=== PATIENT | male | born 1995 | race Caucasian/White ===

== ENCOUNTER 2020-09-15 12:29 | Emergency (ER) | payer BC, SELFPAY ==
[2020-09-15 12:43] VITALS: BP 129/77; PULSE 62; RESP 20; TEMP 36.9; O2SAT 100
--- NOTE | 2020-09-15 12:54 | ED.EAR ---
HPI - Ear Problem General Chief complaint: Ear Stated complaint: ear pain Time Seen by Provider: 09/15/20 12:44 Source: patient and RN notes reviewed Mode of arrival: ambulatory Limitations: no limitations History of Present Illness HPI Narrative: Patient presents today complaining of right ear pressure, echoing, and decreased hearing since yesterday. Denies any sick symptoms to include ear drainage, sore throat, congestion, rhinorrhea, cough, fever. He has tried no [id number] interventions prior to arrival. MD Complaint: decreased hearing Related Data Home Medications Medication Instructions Recorded Confirmed No Home Medications 09/15/20 09/15/20 Allergies Allergy/AdvReac Type Severity Reaction Status Date / Time No Known Allergies Allergy Verified 09/15/20 12:45 Review of Systems Review of Systems: Narrative: CONSTITUTIONAL: Denies body aches, fever, chills, or sweats. EYES: Denies visual changes, redness, or discharge. ENT: Denies rhinorrhea, congestion, sore throat, or otalgia.+ Left ear pressure and decreased hearing CARDIOVASCULAR: Denies chest pain, palpitations, or edema. RESPIRATORY: Denies cough or dyspnea. GASTROINTESTINAL: Denies abdominal pain, nausea, vomiting, or diarrhea. GENITOURINARY: Denies dysuria or hematuria. SKIN: Denies rash, itching, or wounds. MUSCULOSKELETAL: Denies back pain, joint pain, or myalgia. NEUROLOGIC: Denies headache, numbness, tingling, or weakness. PSYCH: Denies depression or anxiety. PMFSH Social History Social History Gender identity (if verbalized by the patient): Male Comments At time of signature, I have reviewed and agree with nursing past medical, surgical, social and family history unless otherwise noted. Please see nursing chart for further information. There is no relevant family history pertinent to the presenting complaint Exam Narrative: Exam Narrative: GENERAL: Well-appearing, well-nourished, and in no acute distress. HEAD: Normocephalic, atraumatic. EYES: EOMI. No redness or drainage. Conjunctivae normal. ENT: Mucous membranes pink and moist. Nares clear. No rhinorrhea. TMs normal bilaterally. Serous effusion on the right side without evidence of infection. Throat normal. Uvula midline. NECK: Normal AROM. Supple. No lymphadenopathy. CHEST: No respiratory distress. EXTREMITIES: Normal range of motion. No edema. SKIN: Warm, dry, no rash. Capillary refill normal. Normal skin turgor. NEURO: No focal deficits. Alert and oriented x3. Gait steady. PSYCH: Normal affect. No signs of depression or anxiety. Course Vital Signs Vital signs: Vital Signs Temperature 98.4 F 09/15/20 12:43 Pulse Rate 62 09/15/20 12:43 Respiratory Rate 20 09/15/20 12:43 Blood Pressure 129/77 09/15/20 12:43 Pulse Oximetry 100 09/15/20 12:43 Temperature 98.4 F 09/15/20 12:43 Pulse Rate 62 09/15/20 12:43 Respiratory Rate 20 09/15/20 12:43 Blood Pressure 129/77 09/15/20 12:43 Pulse Oximetry 100 09/15/20 12:43 Reviewed. Pt has been instructed to follow up with his PCP regarding his elevated blood pressure today. Medical Decision Making Differential Diagnosis Differential Diagnosis: Otitis media, otitis externa, ruptured TM, serous otitis, eustachian tube dysfunction, cerumen impaction Vital Signs Vital Signs: Vital Signs Temperature 98.4 F 09/15/20 12:43 Pulse Rate 62 09/15/20 12:43 Respiratory Rate 09/15/20 12:43 Blood Pressure 129/77 09/15/20 12:43 Pulse Oximetry 100 09/15/20 12:43 Temperature 98.4 F 09/15/20 12:43 Pulse Rate 62 09/15/20 12:43 Respiratory Rate 09/15/20 12:43 Blood Pressure 129/77 09/15/20 12:43 Pulse Oximetry 100 09/15/20 12:43 Critical Care Time Critical Care Time Critical Care Time: No Discharge Plan Discharge Clinical Impression: Acute serous otitis media of right ear Qualifiers: Recurrence: not specified as recurrent Qualified Code(s): H6
== END 2020-09-15 12:58 | disposition home or self-care (01) ==
PROVIDERS: Emergency Provider Nurse Practitioner
DX: H65.01 Acute serous otitis media, right ear (principal)
CPT/HCPCS: 99211; G0463